=== PATIENT | male | born 1990 | race African-American/Black ===

== ENCOUNTER 2016-06-18 14:06 | Emergency (ER) | payer OTHER ==
[~2016-06-18] VITALS: Ht 182.9 cm; Wt 87.5 kg
[2016-06-18 14:13] VITALS: TEMP 36.6; Ht 182.9 cm; Wt 87.5 kg
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
[2016-06-18 15:35] VITALS: BP 126/70; PULSE 60; O2SAT 100
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
== END 2016-06-18 15:36 | disposition home or self-care (01) ==
LOC: C.EDB 14:07 → C.EDD 15:36
DX: S66.911A Strain of unspecified muscle, fascia and tendon at wrist and hand level, right hand, initial encounter (principal); S66.912A Strain of unspecified muscle, fascia and tendon at wrist and hand level, left hand, initial encounter; F17.210 Nicotine dependence, cigarettes, uncomplicated; X50.3XXA Overexertion from repetitive movements, initial encounter; Y99.0 Civilian activity done for income or pay; Y92.89 Other specified places as the place of occurrence of the external cause